=== PATIENT | female | born 1935 | race Caucasian/White ===

== ENCOUNTER 2018-11-18 11:14 | Inpatient (IN) | payer OTHER | END 2018-11-20 12:20 | disposition home or self-care (01) | LOC: FER 11:14 → FM/S 15:37 ==

== ENCOUNTER → 2020-12-09 | Emergency (ER) | payer OTHER ==
[~2020-12-09] MED LIST: POTASSIUM CHLORIDE ORAL LIQUID 20 MEQ/15 ML ONE; POTASSIUM CHLORIDE ORAL LIQUID 20 MEQ/15 ML PO ONE; SODIUM CHLORIDE 1,000 ML IV STA
[2020-12-09 14:43] VITALS: BP 147/74; PULSE 72; TEMP 98.2; BMI 30.2
[2020-12-09 16:20] LABS: BASO % 1.4 % (0-2.0); EOS % 0.7 % (0-4.5); HEMATOCRIT 37.6 % (32.4-45.2); HEMOGLOBIN 12.8 GM/dl (10.7-15.3); LYMPH % 20.6 % (8-40); MCH 33.7 pg (25.7-33.7); MCHC 33.9 g/dl (32.0-36.0); MEAN CELL VOLUME 99.5 fl (80-96); MEAN PLT VOLUME 9.3 fl (7.5-11.1); MONO % 10.7 % (3.8-10.2); NEUT % 66.6 % (42.8-82.8); PLATELET COUNT 261 10^3/uL (134-434); RBC 3.78 M/mm3 (3.60-5.2); RDW 14.2 % (11.6-15.6); WHITE BLOOD COUNT 7.4 K/mm3 (4.0-10.8)
[2020-12-09 16:29] LABS: ALBUMIN 3.9 g/dl (3.4-5.0); ALK PHOS 61 U/L (45-117); ANION GAP 10 MMOL/L (8-16); CALCIUM 9.1 mg/dl (8.5-10); CHLORIDE 101 mmol/L (98-107); CO2 25 mmol/L (21-32); CREATININE 0.8 mg/dl (0.55-1.3); GLUCOSE,RANDOM 84 mg/dl (74-106); SGOT/AST 23 U/L (15-37); SGPT/ALT 15 U/L (13-61); SODIUM 136 mmol/L (136-145); TOT PROT 6.3 g/dl (6.4-8.2)
[2020-12-09 18:25] LABS: LIPASE 188 U/L (73-393)
== END | disposition home or self-care (01) ==
LOC: FER 13:55
DX: E87.6 Hypokalemia (principal)
CPT/HCPCS: 36415; 71045-TC-FY; 80053; 81003; 82550; 83690; 84443; 84484; 85025; 87040; 87077; 87086; 93005; 99285-25; C9803; U0003; U0005

== ENCOUNTER 2021-03-13 11:12 | Emergency (ER) | payer OTHER ==
[2021-03-13 11:19] VITALS: TEMP 99; BMI 14.3
[2021-03-13] MEDS ORDERED: traMADol HCL 50 MG TABLET PO ONE (12:19)
[2021-03-13] MEDS ORDERED: traMADol HCL 50 MG TABLET ONE (12:21)
[2021-03-13] MEDS ORDERED: LIDOCAINE 5% TOPICAL PATCH TP ONE (12:31)
[2021-03-13] MEDS ORDERED: LIDOCAINE 5% TOPICAL PATCH ONE (12:33)
[2021-03-13 15:24] VITALS: BP 164/68; PULSE 65
[2021-03-13] MEDS ORDERED: LIDOCAINE PATCH REMOVAL MC SCH (22:00)
== END 2021-03-13 15:40 | disposition home or self-care (01) ==
LOC: FER 11:12
DX: S32.591A Other specified fracture of right pubis, initial encounter for closed fracture (principal); W01.0XXA Fall on same level from slipping, tripping and stumbling without subsequent striking against object, initial encounter; Y92.002 Bathroom of unspecified non-institutional (private) residence as the place of occurrence of the external cause
CPT/HCPCS: 73523-TC-FY; 99283-25